=== PATIENT | female | born 1980 | race Caucasian/White ===

== ENCOUNTER → 2024-09-09 | Outpatient (CLI) | payer BC, SELFPAY ==
--- NOTE | 2024-09-09 09:39 | XR_ITS ---
Examination: Sinus series 4 views TECHNIQUE: Cy Carrizales lateral submentovertex sinus series 4 views Exam date and time: September 09, 2024 1025 hours INDICATIONS: Sinus pressure and pain beginning one month ago. FINDINGS: Significant opacity in the frontal ethmoid air cells Mucosal thickening in the maxillary antra up to 12 mm Haziness in the sphenoid air cells No fluid levels No polyps or retention cysts IMPRESSION: Chronic pansinusitis
[2024-09-09 11:27] LABS: Basophils # (Auto) 0.1 Thou/mm3 (0.0-0.2); Basophils % (Auto) 1 % (0-2.5); Eosinophils # (Auto) 0.2 Thou/mm3 (0.0-0.5); Eosinophils % (Auto) 3 % (0-10); Hematocrit 40.4 % (36.0-46.0); Hemoglobin 13.8 g/dL (12.0-16.0); Immature Granulocytes % (Auto) 0 % (0-0); Immature Granulocytes Auto 0.02 Thou/mm3 (0.00-0.00); Lymphocytes # (Auto) 2.1 Thou/mm3 (1.0-4.8); Lymphocytes % (Auto) 29 % (10-50); Mean Corpuscular HGB Conc 34.2 g/dl (31.0-37.0); Mean Corpuscular Hemoglobin 30.3 pg (25.0-35.0); Mean Corpuscular Volume 89 fL (80-100); Monocytes # (Auto) 0.5 Thou/mm3 (0.0-0.8); Monocytes % (Auto) 6 % (0-12); Neutrophils # (Auto) 4.3 Thou/mm3 (1.8-7.7); Neutrophils % (Auto) 61 % (37-80); Nucleated Red Blood Cell % 0 /100 WBC (0); Platelet Count 369 Thou/mm3 (140-440); RDW Standard Deviation 41.9 fL (36.4-46.3); Red Blood Count 4.55 Miln/mm3 (4.00-5.20); White Blood Count 7.1 Thou/mm3 (3.6-11.0)
[2024-09-09 11:39] LABS: Glucose Estimated Average 111 mg/dL (80-131); Hemoglobin A1C 5.5 % Hgb (4.8-6.0)
[2024-09-09 11:48] LABS: Alanine Aminotransferase 15 U/L (10-49); Albumin, Serum 4.9 gm/dL (3.5-5.0); Alkaline Phosphatase 82 U/L (46-116); Anion Gap 9 (7-16); Aspartate Amino Transferase 15 U/L (0-34); BUN/Creatinine Ratio 18 Ratio (12-20); Bilirubin,Total 0.4 mg/dL (0.3-1.2); Blood Urea Nitrogen 14 mg/dL (9-23); Calcium 9.8 mg/dL (8.3-10.6); Calcium (Corrected) 9.8 mg/dL (8.5-10.1); Carbon Dioxide 26.6 mMol/L (20.0-31.0); Chloride 105 mMol/L (98-107); Cholesterol 218 mg/dL (132-200); Creatinine (Component) 0.8 mg/dL (0.6-1.3); Free T4 (Free Thyroxine) 1.07 ng/dL (0.89-1.76); Globulin 2.4 gm/dL (2.3-3.5); Glucose 89 mg/dL (74-106); HDL Cholesterol 44 mg/dL (40-60); LDL Cholesterol,Calculated 139 mg/dL (0-130); Osmolality,Calculated 280 (275-295); Potassium 4.6 mMol/L (3.4-5.1); Sodium 141 mMol/L (136-145); Thyroid Stimulating Hormone 1.26 uIU/mL (0.55-4.78); Total Protein 7.3 gm/dL (5.7-8.2); Triglycerides 177 mg/dL (30-150); eGFR > 60 See Note
== END | disposition home or self-care (01) ==
LOC: CDIM 09:03 → COPL 10:36
PROVIDERS: PCP Family Medicine; Referring Provider Family Medicine; Visit Provider Radiology Diagnostic Radiology
DX: J32.4 Chronic pansinusitis (principal); E11.65 Type 2 diabetes mellitus with hyperglycemia; E78.1 Pure hyperglyceridemia; E03.2 Hypothyroidism due to medicaments and other exogenous substances; D50.0 Iron deficiency anemia secondary to blood loss (chronic)
CPT/HCPCS: 36415; 70220; 80053; 80061; 83036; 84439; 84443; 85025

== ENCOUNTER → 2024-09-29 | Outpatient (CLI) | payer BC, SELFPAY ==
--- NOTE | 2024-09-29 13:30 | XR_ITS ---
Examination: CT maxillofacial, without intravenous contrast. 2-D sagittal reconstructions. 3-D reconstructions. Date and time of exam:September 29, 2024 1406 hours INDICATIONS: Chronic sinus pressure and pain months CTDI: vol (mGy):18.6 DLP: (mGycm):382 Technique: Multiple axial images of maxillofacial region, 3.0 mm slice thickness. 2-D sagittal and coronal reconstructions. 3-D reconstructions. Low dose protocols were performed. One or more of the following dose reduction techniques were used; automated exposure control, adjustment of the mA and/or KV according to patient size, use of iterative reconstruction technique. Findings: Mucosal thickening up to 4 mm in the frontal air cells Mild mucosal thickening ethmoid air cells no occlusion ostiomeatal complexes Chronic maxillary antral mucosal thickening up to 7 mm Trace mucosal thickening in the sphenoid air cells. No fluid levels No retention cysts Moderate hypertrophy right inferior nasal turbinate IMPRESSION: Chronic pansinusitis.
== END | disposition home or self-care (01) ==
LOC: CCTX 13:30
PROVIDERS: PCP Family Medicine; Referring Provider Family Medicine; Visit Provider Family Medicine
DX: J32.4 Chronic pansinusitis (principal)
CPT/HCPCS: 70486

== ENCOUNTER → 2025-01-22 | Outpatient (CLI) | payer BC, SELFPAY | END | disposition home or self-care (01) | LOC: SLDO 14:45 | PROVIDERS: PCP Family Medicine; Referring Provider Family Medicine; Visit Provider Family Medicine | DX: N39.0 Urinary tract infection, site not specified (principal) | CPT/HCPCS: 87077; 87086; 87186 ==

== ENCOUNTER → 2025-01-27 | Outpatient (CLI) | payer BC, SELFPAY ==
[2025-01-27 11:17] LABS: Alanine Aminotransferase 17 U/L (10-49); Albumin, Serum 4.2 gm/dL (3.5-5.0); Albumin/Globulin Ratio 1.9 (1.2-2.2); Alkaline Phosphatase 79 U/L (46-116); Anion Gap 10 (7-16); Aspartate Amino Transferase 19 U/L (0-34); BUN/Creatinine Ratio 12 Ratio (12-20); Bilirubin,Total 0.5 mg/dL (0.3-1.2); Blood Urea Nitrogen 12 mg/dL (9-23); Calcium 8.6 mg/dL (8.3-10.6); Calcium (Corrected) 8.6 mg/dL (8.5-10.1); Carbon Dioxide 23.4 mMol/L (20.0-31.0); Cardiac Risk Estimate 5.4 RATIO (3.7-5.6); Chloride 106 mMol/L (98-107); Cholesterol 198 mg/dL (132-200); Free T4 (Free Thyroxine) 1.03 ng/dL (0.89-1.76); Globulin 2.2 gm/dL (2.3-3.5); Glucose 96 mg/dL (74-106); HDL Cholesterol 37 mg/dL (40-60); LDL Cholesterol,Calculated 125 mg/dL (0-130); Osmolality,Calculated 277 (275-295); Potassium 4.7 mMol/L (3.4-5.1); Sodium 139 mMol/L (136-145); Thyroid Stimulating Hormone 1.19 uIU/mL (0.55-4.78); Total Protein 6.4 gm/dL (5.7-8.2); Triglycerides 182 mg/dL (30-150); eGFR > 60 See Note
[2025-01-27 11:22] LABS: Follicle Stimulating Hormone 9.51 mIU/mL (See Note)
[2025-01-30 07:07] LABS: Luteinizing Hormone* 6.1 mIU/mL
== END | disposition home or self-care (01) ==
PROVIDERS: PCP Family Medicine; Referring Provider Family Medicine; Visit Provider Family Medicine
DX: Z13.1 Encounter for screening for diabetes mellitus (principal); E03.2 Hypothyroidism due to medicaments and other exogenous substances; E78.1 Pure hyperglyceridemia; N95.1 Menopausal and female climacteric states
CPT/HCPCS: 36415; 80053; 80061; 83001; 83002; 84439; 84443

== ENCOUNTER → 2025-04-16 | Outpatient (CLI) | payer BC, SELFPAY ==
--- NOTE | 2025-04-16 08:45 | XR_ITS ---
Examination: Retroperitoneal ultrasound, complete Technique: Multiple high resolution grayscale images of the retroperitoneum obtained, including kidneys and bladder. Exam date and time:April 16, 2025 0827 hours INDICATIONS: Urinary tract infections 4 months, diagnosis interstitial nephritis FINDINGS: Right kidney 10.0 cm cortex 1.5 cm Left kidney 10.6 cm cortex 1.8 cm Minimal bilateral hydronephrosis No bladder mass or bladder calculi Bladder prevoid volume 116 cc IMPRESSION: Minimal bilateral hydronephrosis, consider urinary tract infection
== END | disposition home or self-care (01) ==
PROVIDERS: PCP Family Medicine; Referring Provider Family Medicine; Visit Provider Family Medicine
DX: N13.30 Unspecified hydronephrosis (principal)
CPT/HCPCS: 76770

== ENCOUNTER → 2025-05-01 | Outpatient (CLI) | payer BC, SELFPAY | END | disposition home or self-care (01) | LOC: SLDO 11:44 | PROVIDERS: PCP Family Medicine; Referring Provider Family Medicine; Visit Provider Family Medicine | DX: N30.00 Acute cystitis without hematuria (principal); Z11.3 Encounter for screening for infections with a predominantly sexual mode of transmission | CPT/HCPCS: 87086; 87491; 87591; 87661 ==

== ENCOUNTER → 2025-05-22 | Outpatient (CLI) | payer BC, SELFPAY ==
--- NOTE | 2025-05-22 09:00 | XR_ITS ---
Examination: Screening digital mammography, bilateral Computer aided detection 3-D breast Tomosynthesis, bilateral Date and time of exam: May 22, 2025, 0855 hours, compared to mammograms dating to February 28, 2023 Indication: Screening Technique: Nonmagnified MLO, CC views of the breasts to been obtained, reconstructed from 3-D Tomosynthesis images. R2 computer aided detection program utilized for evaluation of suspicious masses and/or abnormal calcifications. 3-D Tomosynthesis images obtained. Findings: The breasts are extremely dense, which limits the sensitivity of mammography Numerous bilateral calcifications. Bilateral breast biopsy markers No suspicious masses Impression: BI-RADS category II: Benign Findings. Recommend 1 year follow-up mammogram. Given the patient's strong family history breast cancer, the patient's history of bilateral breast pain, the patient's history of multiple breast nodules on breast sonogram April 08, 2024, recommend follow-up bilateral breast sonography
== END | disposition home or self-care (01) ==
LOC: CDIM 08:46
PROVIDERS: PCP Family Medicine; Referring Provider Family Medicine; Visit Provider Family Medicine
DX: Z12.31 Encounter for screening mammogram for malignant neoplasm of breast (principal); R92.323 Mammographic fibroglandular density, bilateral breasts; Z80.3 Family history of malignant neoplasm of breast
CPT/HCPCS: 77063; 77067